=== PATIENT | female | born 1975 | race Caucasian/White ===

== ENCOUNTER 2024-03-27 20:34 | Emergency (ER) | payer SELFPAY ==
[~2024-03-27] VITALS: Ht 152.4 cm; Wt 89.0 kg
[2024-03-27 20:41] VITALS: O2SAT 99
[2024-03-27] MEDS: IBUPROFEN 600MG TABLET PO STA (23:26)
[2024-03-27] MEDS ORDERED: IBUP-2029 MT (23:36)
[2024-03-27 23:50] VITALS: BP 121/69; PULSE 76; RESP 16; TEMP 98.6
== END 2024-03-28 00:26 | disposition home or self-care (01) ==
LOC: ER 20:34
DX: S20.219A Contusion of unspecified front wall of thorax, initial encounter (principal); S80.11XA Contusion of right lower leg, initial encounter; E11.9 Type 2 diabetes mellitus without complications; V98.8XXA Other specified transport accidents, initial encounter; Y93.89 Activity, other specified; Y92.89 Other specified places as the place of occurrence of the external cause; Y99.8 Other external cause status
CPT/HCPCS: 71045; 73552; 73600; 99284

== ENCOUNTER 2024-04-15 11:56 | Emergency (ER) | payer SELFPAY ==
[~2024-04-15] VITALS: Ht 152.4 cm; Wt 89.5 kg
[~2024-04-15 11:56] MED LIST: IBUP-2029 MT
[2024-04-15 12:07] VITALS: O2SAT 96
[2024-04-15] MEDS: KETOROLAC 30MG/ML VIAL IM ONE (15:15)
[2024-04-15] MEDS: METOCLOPRAMIDE HCL 10MG TABLET PO ONE (15:15)
[2024-04-15 16:30] VITALS: BP 123/74; PULSE 69; RESP 16; TEMP 97.9
== END 2024-04-15 16:40 | disposition home or self-care (01) ==
LOC: ER 12:05
DX: S09.8XXA Other specified injuries of head, initial encounter (principal); E11.9 Type 2 diabetes mellitus without complications; Z90.49 Acquired absence of other specified parts of digestive tract; Z90.710 Acquired absence of both cervix and uterus; Z98.890 Other specified postprocedural states; Z88.8 Allergy status to other drugs, medicaments and biological substances; V98.8XXA Other specified transport accidents, initial encounter; Y93.89 Activity, other specified; Y92.89 Other specified places as the place of occurrence of the external cause; Y99.8 Other external cause status
CPT/HCPCS: 81025; 70450; 96372; 99285; J8597; J1885